=== PATIENT | male | born 2000 | race Caucasian/White ===

== ENCOUNTER 2018-01-01 15:46 | Inpatient (IN) | payer BC ==
[~2018-01-01] VITALS: Ht 167.6 cm; Wt 59.9 kg
[2018-01-01 16:20] VITALS: BP 123/76
[2018-01-01] MEDS ORDERED: CEFTRIAXONE PMX 1GM/50ML 50 ML IVPB ONE (17:00)
[2018-01-01] MEDS ORDERED: SODIUM CHLORIDE 0.9% 1,000ML IVBOLUS ONE ×2 (17:00)
[2018-01-01] MEDS ORDERED: CEFTRIAXONE PMX 1GM/50ML 50 ML ONE (17:11)
[2018-01-01 17:28] LABS: ALANINE AMINOTRANSFERASE 30 U/L (12-78); ALBUMIN 4.4 g/dL (3.4-5.0); ANION GAP 5 mmol/L (5-15); CALCIUM 8.9 mg/dL (8.5-10.1); CHLORIDE 104 mmol/L (98-107); CREATININE 1.18 mg/dL (0.7-1.3)
[2018-01-01 17:30] LABS: ALKALINE PHOSPHATASE 77 U/L (45-117); BILIRUBIN,TOTAL 0.6 mg/dL (0.2-1.0); TOTAL PROTEIN 8.8 g/dL (6.4-8.2)
[2018-01-01 17:44] LABS: MD YES; MEAN CORPUSCULAR HGB CONC 34.3 g/dL (33.2-36.2); MEAN CORPUSCULAR VOLUME 87.5 fL (81-97); MEAN PLATELET VOLUME 7.8 fL (7.4-10.4); PLATELET COUNT 169 x10^3/uL (130-400); RED BLOOD COUNT 5.74 x10^6/uL (4.38-5.82); RED CELL DISTRIBUTION WIDTH 12.3 % (9.4-14.8)
[2018-01-01 17:51] LABS: BAND#(MANUAL) 0.04 x10^3/uL; BANDS%(MANUAL) 1 % (0-7); EOS#(MANUAL) 0.07 x10^3/uL (0.0-0.8); EOS% (MANUAL) 2 % (1-7); LYMPH#(MANUAL) 1.74 x10^3/uL (1-6.1); LYMPHS% (MANUAL) 47 % (22-44); MONOS#(MANUAL) 0.56 x10^3/uL (0.3-2.7); MONOS% (MANUAL) 15 % (2-9); REACTIVE LYMPHS # (MANUAL) 0.11 x10^3/uL (0-0); REACTIVE LYMPHS % (MANUAL) 3 % (0-0); SEG#(MANUAL) 1.18 x10^3/uL (1.8-8); SEGS% (MANUAL) 32 % (42-75)
[2018-01-01 17:52] LABS: <PLATELET ESTIMATE> ADEQUATE; <PLT MORPHOLOGY> NORMAL PLT MORPH; <RBC MORPHOLOGY> NORMAL
[2018-01-01] MEDS ORDERED: SODIUM CHLORIDE FLUSH 10ML SYR IVF ONE (18:00)
[2018-01-01] MEDS ORDERED: SODIUM CHLORIDE FLUSH 10ML SYR IVF PRN (18:30)
[2018-01-01] MEDS ORDERED: TEMAZEPAM 15 MG CAPSULE PO PRN (20:00)
[2018-01-01] MEDS ORDERED: DOCUSATE 100 MG CAPSULE PO PRN (20:00)
[2018-01-01] MEDS ORDERED: ACETAMINOPHEN 325 MG TABLET PO PRN (20:00)
[2018-01-01] MEDS ORDERED: ONDANSETRON ODT 4 MG PO PRN (20:00)
[2018-01-01] MEDS: CETIRIZINE 10 MG TABLET PO SCH (22:02)
[2018-01-01 22:36] LABS: MICROSCOPIC NOT IND
[2018-01-01 22:40] LABS: CULTURE INDICATED? NO
[2018-01-01 23:47] VITALS: BP 123/76
[2018-01-02 00:35] VITALS: BP_SYST 94; BP_SYST 95; BP_DIAS 58; BP_DIAS 60
[2018-01-02] MEDS: CEFTRIAXONE PMX 1GM/50ML 50 ML IV SCH ×2 (05:17→17:32)
[2018-01-02 05:57] LABS: BASOPHILS # (AUTO) 0.04 x10^3/uL (0-0.3); BASOPHILS % (AUTO) 1 % (0-1); EOSINOPHILS # (AUTO) 0.11 x10^3/uL (0-0.8); EOSINOPHILS % (AUTO) 3 % (1-7); LYMPHOCYTES # (AUTO) 2.04 x10^3/uL (1-6.1); LYMPHOCYTES % (AUTO) 50 % (22-44); MD NO; MEAN CORPUSCULAR HEMOGLOBIN 29.3 pg (27.5-34.5); MEAN CORPUSCULAR HGB CONC 33.6 g/dL (33.2-36.2); MEAN CORPUSCULAR VOLUME 87.3 fL (81-97); MEAN PLATELET VOLUME 7.4 fL (7.4-10.4); MONOCYTES # (AUTO) 0.54 x10^3/uL (0-1.4); MONOCYTES % (AUTO) 13 % (2-9); NEUTROPHILS # (AUTO) 1.38 x10^3/uL (1.8-8.0); NEUTROPHILS % (AUTO) 34 % (42-75); PLATELET COUNT 169 x10^3/uL (130-400); RED BLOOD COUNT 5.13 x10^6/uL (4.38-5.82); RED CELL DISTRIBUTION WIDTH 12.5 % (9.4-14.8)
[2018-01-02 06:07] LABS: CHLORIDE 110 mmol/L (98-107)
[2018-01-02 06:15] LABS: ANION GAP 6 mmol/L (5-15); CALCIUM 8.4 mg/dL (8.5-10.1); CREATININE 0.93 mg/dL (0.7-1.3)
[2018-01-02 07:44] VITALS: BP 109/71
[2018-01-02] MEDS: CETIRIZINE 10 MG TABLET PO SCH (08:38)
[2018-01-02 12:32] VITALS: BP 109/72
[2018-01-02] MEDS ORDERED: CEFTRIAXONE PMX 1GM/50ML 50 ML IV SCH (17:00)
[2018-01-02 19:10] VITALS: BP 105/69
[2018-01-03 01:59] VITALS: BP 96/58
[2018-01-03] MEDS: CEFTRIAXONE PMX 1GM/50ML 50 ML IV SCH ×2 (05:14→17:12)
[2018-01-03 05:59] LABS: BASOPHILS # (AUTO) 0.02 x10^3/uL (0-0.3); BASOPHILS % (AUTO) 1 % (0-1); EOSINOPHILS # (AUTO) 0.13 x10^3/uL (0-0.8); EOSINOPHILS % (AUTO) 3 % (1-7); LYMPHOCYTES # (AUTO) 1.84 x10^3/uL (1-6.1); LYMPHOCYTES % (AUTO) 42 % (22-44); MD NO; MEAN CORPUSCULAR HGB CONC 34.2 g/dL (33.2-36.2); MEAN CORPUSCULAR VOLUME 87.8 fL (81-97); MEAN PLATELET VOLUME 7.6 fL (7.4-10.4); MONOCYTES # (AUTO) 0.67 x10^3/uL (0-1.4); MONOCYTES % (AUTO) 15 % (2-9); NEUTROPHILS # (AUTO) 1.75 x10^3/uL (1.8-8.0); NEUTROPHILS % (AUTO) 40 % (42-75); PLATELET COUNT 191 x10^3/uL (130-400); RED BLOOD COUNT 5.14 x10^6/uL (4.38-5.82); RED CELL DISTRIBUTION WIDTH 12.6 % (9.4-14.8)
[2018-01-03 06:03] LABS: ANION GAP 5 mmol/L (5-15); CALCIUM 8.9 mg/dL (8.5-10.1); CHLORIDE 109 mmol/L (98-107); CREATININE 0.98 mg/dL (0.7-1.3)
[2018-01-03 06:43] VITALS: BP 98/68
[2018-01-03] MEDS: CETIRIZINE 10 MG TABLET PO SCH (09:09)
[2018-01-03 12:42] VITALS: BP 97/61
[2018-01-03 19:43] VITALS: BP 114/74
[2018-01-04 02:43] VITALS: BP 105/67
[2018-01-04] MEDS: CEFTRIAXONE PMX 1GM/50ML 50 ML IV SCH (04:56)
[2018-01-04 05:38] LABS: BASOPHILS # (AUTO) 0.01 x10^3/uL (0-0.3); BASOPHILS % (AUTO) 0 % (0-1); EOSINOPHILS # (AUTO) 0.14 x10^3/uL (0-0.8); EOSINOPHILS % (AUTO) 3 % (1-7); LYMPHOCYTES # (AUTO) 2.05 x10^3/uL (1-6.1); LYMPHOCYTES % (AUTO) 39 % (22-44); MD NO; MEAN CORPUSCULAR HEMOGLOBIN 29.8 pg (27.5-34.5); MEAN CORPUSCULAR HGB CONC 33.7 g/dL (33.2-36.2); MEAN CORPUSCULAR VOLUME 88.4 fL (81-97); MEAN PLATELET VOLUME 7.8 fL (7.4-10.4); MONOCYTES # (AUTO) 0.74 x10^3/uL (0-1.4); MONOCYTES % (AUTO) 14 % (2-9); NEUTROPHILS # (AUTO) 2.38 x10^3/uL (1.8-8.0); NEUTROPHILS % (AUTO) 45 % (42-75); PLATELET COUNT 224 x10^3/uL (130-400); RED BLOOD COUNT 5.18 x10^6/uL (4.38-5.82); RED CELL DISTRIBUTION WIDTH 12.3 % (9.4-14.8)
[2018-01-04 05:46] LABS: ANION GAP 6 mmol/L (5-15); CALCIUM 8.6 mg/dL (8.5-10.1); CHLORIDE 106 mmol/L (98-107)
[2018-01-04 05:47] LABS: CREATININE 1.01 mg/dL (0.7-1.3)
[2018-01-04 08:08] VITALS: BP 103/66
[2018-01-04] MEDS: CETIRIZINE 10 MG TABLET PO SCH (08:10)
[2018-01-04 14:06] VITALS: BP 115/71
[2018-01-04] MEDS: AMPICILLIN/SULBACTAM 3 GM in SODIUM CHLORIDE 0.9% 100 ML IV SCH (16:31)
[2018-01-04 19:20] VITALS: BP 117/67
[2018-01-05 02:17] VITALS: BP 96/60
[2018-01-05] MEDS: AMPICILLIN/SULBACTAM 3 GM in SODIUM CHLORIDE 0.9% 100 ML IV SCH ×3 (02:18→18:12)
[2018-01-05 05:41] LABS: BASOPHILS # (AUTO) 0.02 x10^3/uL (0-0.3); BASOPHILS % (AUTO) 0 % (0-1); EOSINOPHILS % (AUTO) 4 % (1-7); LYMPHOCYTES # (AUTO) 2.02 x10^3/uL (1-6.1); LYMPHOCYTES % (AUTO) 36 % (22-44); MD NO; MEAN CORPUSCULAR HEMOGLOBIN 29.8 pg (27.5-34.5); MEAN CORPUSCULAR HGB CONC 34.1 g/dL (33.2-36.2); MEAN CORPUSCULAR VOLUME 87.5 fL (81-97); MEAN PLATELET VOLUME 7.7 fL (7.4-10.4); MONOCYTES # (AUTO) 0.88 x10^3/uL (0-1.4); MONOCYTES % (AUTO) 16 % (2-9); NEUTROPHILS # (AUTO) 2.55 x10^3/uL (1.8-8.0); NEUTROPHILS % (AUTO) 45 % (42-75); PLATELET COUNT 242 x10^3/uL (130-400); RED BLOOD COUNT 4.89 x10^6/uL (4.38-5.82); RED CELL DISTRIBUTION WIDTH 12.1 % (9.4-14.8)
[2018-01-05 05:54] LABS: ANION GAP 6 mmol/L (5-15); CALCIUM 8.7 mg/dL (8.5-10.1); CHLORIDE 108 mmol/L (98-107); CREATININE 0.82 mg/dL (0.7-1.3)
[2018-01-05] MEDS ORDERED: POTASSIUM CHLORIDE 20 MEQ TAB.ER.PRT PO ONE (06:30)
[2018-01-05 07:40] VITALS: BP 96/63
[2018-01-05] MEDS: CETIRIZINE 10 MG TABLET PO SCH (09:23)
[2018-01-05 13:00] VITALS: BP 107/68
[2018-01-05 20:10] VITALS: BP 113/69
[2018-01-06 02:16] VITALS: BP 100/63
[2018-01-06] MEDS: AMPICILLIN/SULBACTAM 3 GM in SODIUM CHLORIDE 0.9% 100 ML IV SCH ×2 (02:17→10:31)
[2018-01-06 07:23] VITALS: BP 91/51
[2018-01-06] MEDS: CETIRIZINE 10 MG TABLET PO SCH (09:29)
[2018-01-06 12:42] VITALS: BP 100/68
[2018-01-06] MEDS ORDERED: AMOX1TAB64 PO (16:36)
== END 2018-01-06 17:09 | disposition home or self-care (01) | DRG 153 ==
LOC: ED 17:06 → EDIP 17:26 → 4EST 18:15
PROVIDERS: ADMIT Hospitalist; ATTEND Hospitalist
DX: J02.9 Acute pharyngitis, unspecified (principal); R78.81 Bacteremia; D72.819 Decreased white blood cell count, unspecified; R09.81 Nasal congestion
CPT/HCPCS: 36415; 71045; 80048; 80053; 81003; 83605; 84145; 85025; 87040; 93005; 96365; J0295; J0696; J7030